=== PATIENT | female | born 1960 | race Caucasian/White ===

== ENCOUNTER 2016-08-01 13:46 | Emergency (ER) | payer OTHER ==
[~2016-08-01] VITALS: Wt 109.0 kg
[~2016-08-01 13:46] MED LIST: AMLO-218 PO; ASPI-664 PO; ATEN50TA PO; BENA40TA41 PO; CLON-379 PO; CLOP75TA27 PO; CYAN50TA PO; FOLI-49 PO; GLIM2TAB PO; HYD25 PO; INSU100V23 SC; LANT3I SC; MELO-109 PO; PANT40TA3 PO; PRAV80TA27 PO; RANO500T2 PO; SERT25TA83 PO
[2016-08-01] MEDS ORDERED: CEPH-443 PO (15:57)
[2016-08-01] MEDS ORDERED: BACTDS PO (15:57)
--- NOTE | 2016-08-01 16:30 | ERD ---
ER Documentation Chief Complaint Date/Time DATE: 08/01/16 TIME: 16:17 Chief Complaint bilateral feet pain from possible ingrown nails. no fevers HPI This is a 55-year-old female with history of DMII, asthma, HTN, [place] on blood thinners presenting to the emergency department complaining of 2nd toe pain bilaterally on and off for four years, she describes the pain 12/13. She states she is able to walk. Denies fevers, drainage ROS All systems reviewed and are negative except as per history of present illness. Medications Home Meds Active Scripts Sulfamethoxazole-Trimethoprim* (Bactrim* DS) 800-160 Mg Tab, 1 TAB PO BID for 5 Days, TAB Prov:LAVONNE SCHERER PA-C 08/01/16 Cephalexin* (Keflex*) 500 Mg Capsule, 500 MG PO QID for 7 Days, CAP Prov:LAVONNE SCHERER PA-C 08/01/16 Amlodipine Besylate* (Norvasc*) 10 Mg Tablet, 10 MG PO DAILY, #60 TAB Prov:MOLLY LOOMIS 01/09/15 Reported Medications Ranolazine* (Ranexa*) 500 Mg Tab.sr.12h, 500 MG PO Q12, TAB 01/08/15 Glimepiride* (Glimepiride*) 2 Mg Tablet, 2 MG PO BID, TAB 01/08/15 Clopidogrel Bisulfate (Clopidogrel) 75 Mg Tablet, 75 MG PO DAILY, TAB 01/08/15 Benazepril Hcl* (Benazepril Hcl*) 40 Mg Tablet, 40 MG PO DAILY, TAB 01/08/15 Folic Acid* (Folic Acid*) 1 Mg Tablet, 1 MG PO DAILY, TAB 01/08/15 Meloxicam* (Meloxicam*) 7.5 Mg Tablet, 7.5 MG PO DAILY, TAB 01/08/15 Aspirin* (Aspirin* (EC)) 81 Mg Tablet.dr, 81 MG PO DAILY, TAB 01/08/15 Atenolol* (Atenolol*) 50 Mg Tablet, 50 MG PO DAILY, TAB 01/08/15 Sertraline Hcl* (Sertraline Hcl*) 25 Mg Tablet, 25 MG PO DAILY, TAB 01/08/15 Pantoprazole* (Protonix*) 40 Mg Tablet.dr, 40 MG PO DAILY, TAB 01/08/15 Pravastatin Sodium* (Pravastatin Sodium*) 80 Mg Tablet, 80 MG PO HS, TAB 01/08/15 Hydrochlorothiazide* (Hydrochlorothiazide*) 25 Mg Tab, 25 MG PO DAILY, TAB 01/08/15 Clonidine Hcl* (Clonidine Hcl*) 0.1 Mg Tab, 0.1 MG PO Q8, TAB 01/08/15 Cyanocobalamin* (Vitamin B-12*) 50 Mcg Tablet, 50 MCG PO DAILY, TAB 01/08/15 Insulin Regular, Human* (Novolin R*) 100 U/Ml Vial, 15 UNIT SC BID, VIAL 01/08/15 Insulin Glargine* (Lantus*) 100 Unit/Ml Soln, 40-50 UNIT SC DAILY, EA 01/08/15 Allergies Allergies: Coded Allergies: No Known Allergy (Unverified , 01/08/15) PMhx/Soc History of Surgery: Yes (STENT PLACEMENT 07/2014) Anesthesia Reaction: No Hx Neurological Disorder: No Hx Respiratory Disorders: No Hx Cardiac Disorders: Yes (STENT , [place] 07/18, HTN) Hx Psychiatric Problems: No Hx Miscellaneous Medical Probl: No (dm ) Hx Alcohol Use: No Hx Substance Use: No Hx Tobacco Use: No Physical Exam Vitals Vital Signs Date Time Temp Pulse Resp B/P Pulse Ox O2 Delivery O2 Flow Rate FiO2 08/01/16 13:59 98.9 69 21 140/91 98 Physical Exam General: WD/WN, in no apparent distress, non-toxic appearing HENT: NC/AT Eyes: Conjunctiva normal Neck: Supple Pulm: Clear to auscultation, normal labored breathing; no wheezing/rales/ rhonchi heard CV: Good capillary refill GI: Non-distended, no guarding Back: No masses Ext: No clubbing, cyanosis, or edema Neuro: Moves on all fours Skin: No evidence of paronychia, redness,or drainage on toenails Normal turgor, color, and temperature. No ulcerations or rashes noted. Psych: Normal mood Procedures/MDM This is a 55-year-old female with history of DMII, asthma, HTN, [place] on blood thinners presenting to the emergency department complaining of 2nd toe pain bilaterally on and off for four years, On examination, it appears that patient has mild ingrown toe nails on the 2nd digits of both feet without any evidence of significant paronychia, abscess, cellulitis, felon. Patient is suitable for warm soaks three times a day and antibiotics keflex and bactrim for possible infection, I have discussed for patient to follow-up with podiatry. Patient is stable and neurovascularly intact for discharge She understands and agrees plan Departure Diagnosis: Primary Impression: IGTN (ingrowing toe nail) Condition: Stable Patient Instructions: Understanding Ingrown Toenails, Ingrown Toenail, No Infect (Hometx), Ingrown Toenail, Infected (Abx Only) [facility] Usted se pena hecho un examen mdico de control que le indica que no est en kirit condicin que requiera tratamiento urgente en el Departamento de Emergencia. Un estudio ms profundo y el tratamiento de ruiz condicin pueden esperar sin ningn riesgo hasta que usted sea atendida/o en el consultorio de ruiz mdico o kirit cl rob. Es responsabilidad suya arreglar kirit marc para el seguimiento del sergei. MANEJO DE CONDICIONES NO URGENTES EN EL FUTURO 1) Si usted tiene un mdico de atencin primaria: Usted debera llamar a ruiz mdico de atencin primaria antes de venir al departamento de emergencia. Despus de las horas de consultorio, ruiz doctor o ruiz asociado/a est disponible por telfono. El mdico o enfermero de suzanne en el servicio telefnico puede asesorarle por mercedez medio para atender el problema, o sergei contrario se puede programar kirit marc. 2) Si usted no tiene un mdico de atencin primaria: Llame al mdico o clnica de referencia que aparece abajo onofre las horas de consultorio para hacer kirit marc para que le vean. CLINICAS: [facility] [id number] [facility] [phone] [facility] [phone] [facility] [phone] [facility] [phone] [address] [facility] [phone] [address] Additional Instructions: FOLLOW UP WITH YOUR PRIMARY CARE PHYSICIAN TOMORROW.Return to this facility if you are not improving as expected. Take all medicines as directed. Return to this facility if you are not improving as expected. LAVONNE SCHERER PA-C Aug 01, 2016 16:27
== END 2016-08-01 16:26 | disposition home or self-care (01) ==
LOC: FTE 13:46
DX: L60.0 Ingrowing nail (principal); I10 Essential (primary) hypertension; E11.9 Type 2 diabetes mellitus without complications; J45.909 Unspecified asthma, uncomplicated; Z79.4 Long term (current) use of insulin; Z79.82 Long term (current) use of aspirin; Z79.84 Long term (current) use of oral hypoglycemic drugs; Z98.61 Coronary angioplasty status
CPT/HCPCS: 99284

== ENCOUNTER 2016-08-13 14:50 | Emergency (ER) | payer OTHER ==
[~2016-08-13] VITALS: Ht 165.1 cm; Wt 111.0 kg
[~2016-08-13 14:50] MED LIST changes: +BACTDS PO; +CEPH-443 PO
[2016-08-13 15:17] VITALS: Ht 165.1 cm; Wt 111.0 kg
[2016-08-13] MEDS ORDERED: LIDOCAINE 1% (MDV) 20 ML INJ SC ONE (17:00)
[2016-08-13] MEDS ORDERED: HYDROCODONE/APAP (5/325) TAB PO ONE (18:30)
[2016-08-13] MEDS ORDERED: HYDR-905 PO (18:37)
[2016-08-13] MEDS ORDERED: BACTDS PO (18:37)
[2016-08-13] MEDS ORDERED: CEPH-443 PO (18:37)
[2016-08-13 18:51] VITALS: BP 156/82; PULSE 88; RESP 17; TEMP 98.6
--- NOTE | 2016-08-13 20:43 | ERA ---
ER Documentation Chief Complaint Date/Time DATE: 08/13/16 TIME: 20:36 Chief Complaint BILATERAL TOE PAIN FROM INGROWN NAIL, HERE TO HAVE INGROWN NAIL REMOVED HPI Patient is a 55-year-old female who returns to the emergency department for bilateral toe pain of her second digit. Patient has a 7 year history of ingrown toenails of the same toes that have never been treated. Patient states the pain to be 10 out of 10 when the toenails moved. Worsening of pain happens with toenail movement and nothing has improved the symptoms. Was recently seen in the ER and prescribed Bactrim and Keflex. ROS All systems reviewed and are negative except as per history of present illness. Medications Home Meds Active Scripts Sulfamethoxazole-Trimethoprim* (Bactrim* DS) 800-160 Mg Tab, 1 TAB PO DAILY for 5 Days, TAB Prov:MARYBETH BARNHART PA-C 08/13/16 Cephalexin* (Keflex*) 500 Mg Capsule, 500 MG PO QID for 5 Days, CAP Prov:MARYBETH BARNHART PA-C 08/13/16 Hydrocodone/Acetaminophen (Roscoe 7.5-325 Tablet) 1 Each Tablet, 1 EACH PO QID for 5 Days, TAB Prov:MARYBETH BARNHART PA-C 08/13/16 Sulfamethoxazole-Trimethoprim* (Bactrim* DS) 800-160 Mg Tab, 1 TAB PO BID for 5 Days, TAB Prov:LAVONNE SCHERER PA-C 08/01/16 Cephalexin* (Keflex*) 500 Mg Capsule, 500 MG PO QID for 7 Days, CAP Prov:LAVONNE SCHERER PA-C 08/01/16 Amlodipine Besylate* (Norvasc*) 10 Mg Tablet, 10 MG PO DAILY, #60 TAB Prov:MOLLY LOOMIS 01/09/15 Reported Medications Ranolazine* (Ranexa*) 500 Mg Tab.sr.12h, 500 MG PO Q12, TAB 01/08/15 Glimepiride* (Glimepiride*) 2 Mg Tablet, 2 MG PO BID, TAB 01/08/15 Clopidogrel Bisulfate (Clopidogrel) 75 Mg Tablet, 75 MG PO DAILY, TAB 01/08/15 Benazepril Hcl* (Benazepril Hcl*) 40 Mg Tablet, 40 MG PO DAILY, TAB 01/08/15 Folic Acid* (Folic Acid*) 1 Mg Tablet, 1 MG PO DAILY, TAB 01/08/15 Meloxicam* (Meloxicam*) 7.5 Mg Tablet, 7.5 MG PO DAILY, TAB 01/08/15 Aspirin* (Aspirin* (EC)) 81 Mg Tablet.dr, 81 MG PO DAILY, TAB 01/08/15 Atenolol* (Atenolol*) 50 Mg Tablet, 50 MG PO DAILY, TAB 01/08/15 Sertraline Hcl* (Sertraline Hcl*) 25 Mg Tablet, 25 MG PO DAILY, TAB 01/08/15 Pantoprazole* (Protonix*) 40 Mg Tablet.dr, 40 MG PO DAILY, TAB 01/08/15 Pravastatin Sodium* (Pravastatin Sodium*) 80 Mg Tablet, 80 MG PO HS, TAB 01/08/15 Hydrochlorothiazide* (Hydrochlorothiazide*) 25 Mg Tab, 25 MG PO DAILY, TAB 01/08/15 Clonidine Hcl* (Clonidine Hcl*) 0.1 Mg Tab, 0.1 MG PO Q8, TAB 01/08/15 Cyanocobalamin* (Vitamin B-12*) 50 Mcg Tablet, 50 MCG PO DAILY, TAB 01/08/15 Insulin Regular, Human* (Novolin R*) 100 U/Ml Vial, 15 UNIT SC BID, VIAL 01/08/15 Insulin Glargine* (Lantus*) 100 Unit/Ml Soln, 40-50 UNIT SC DAILY, EA 01/08/15 Allergies Allergies: Coded Allergies: No Known Allergy (Unverified , 01/08/15) PMhx/Soc History of Surgery: Yes (STENT PLACEMENT 07/2014) Anesthesia Reaction: No Hx Neurological Disorder: No Hx Respiratory Disorders: No Hx Cardiac Disorders: Yes (STENT , [place] 07/18, HTN) Hx Psychiatric Problems: No Hx Miscellaneous Medical Probl: No (dm ) Hx Alcohol Use: No Hx Substance Use: No Hx Tobacco Use: No Physical Exam Vitals Vital Signs Date Time Temp Pulse Resp B/P Pulse Ox O2 Delivery O2 Flow Rate FiO2 08/13/16 18:51 98.6 88 17 156/82 96 Room Air 08/13/16 15:17 98.7 91 18 189/89 95 Physical Exam Const: 55-year-old obese female. Head: Atraumatic Eyes: Normal Conjunctiva ENT: Normal External Ears, Nose and Mouth. Neck: Full range of motion..~ No meningismus. Resp: Clear to auscultation bilaterally Cardio: Regular rate and rhythm, no murmurs Abd: Soft, non tender, non distended. Normal bowel sounds Skin: No petechiae or rashes Back: No midline or flank tenderness Ext: No cyanosis. Second digit on each foot has a toenail that is surrounded into the skin on both the lateral and medial sides. Neur: Awake and alert Psych: Normal Mood and Affect Results 24 hrs Current Medications Medications (Trade) Dose Ordered Sig/Lenka Route PRN Reason Start Time Stop Time Status Last Admin Dose Admin Lidocaine (Xylocaine 1% (Mdv) 20 ml) 20 ml ONCE ONCE SC 08/13/16 17:00 08/13/16 17:01 DC Acetaminophen/ Hydrocodone Bitart (Roscoe (5/325)) 1 tab ONCE ONCE PO 08/13/16 18:30 08/13/16 18:31 DC 08/13/16 18:09 Procedures/MDM Patient has a chronic 7 year history of ingrown toenails which have not been treated. Was at the emergency department and prescribed Bactrim and Keflex with elevation of symptoms. On physical examination of seen severe ingrown toenails on both second digits of the feet bilaterally. Talk to Dr. Woodard and he agrees with my assessment and plan. Plan at this time is to remove the entire toenail from each of the second digits of the feet bilaterally. Will discharge with pain medication with Roscoe and antibiotics. The first toenail taken off of the left the nail and the nailbed was removed there were no complications. Patient's capillary refill was within normal limits before and after procedure. The second now taken was from the right second digit and again both the nail and nailbed were completely removed. There were no complications. Patient's capillary refill was intact before and after. Departure Diagnosis: Primary Impression: Nail problem Additional Impression: Nail bed injury Condition: Stable Patient Instructions: Understanding Ingrown Toenails, Ingrown Toenail, Excised Additional Instructions: Return to emergency department in 2 days for reevaluation of wound. Return sooner if infections or symptoms worsen. May alternate the Roscoe with ibuprofen 4 hours per MARYBETH BARNHART PA-C Aug 13, 2016 20:43
== END 2016-08-13 18:53 | disposition home or self-care (01) ==
LOC: FTE 14:50
DX: S99.921A Unspecified injury of right foot, initial encounter (principal); S99.922A Unspecified injury of left foot, initial encounter; L60.0 Ingrowing nail; I10 Essential (primary) hypertension; E11.9 Type 2 diabetes mellitus without complications; X58.XXXA Exposure to other specified factors, initial encounter; Y92.9 Unspecified place or not applicable; Z79.4 Long term (current) use of insulin; Z79.84 Long term (current) use of oral hypoglycemic drugs; Z79.82 Long term (current) use of aspirin; Z79.01 Long term (current) use of anticoagulants; Z98.61 Coronary angioplasty status
CPT/HCPCS: 11750; Z7502; Z7610

== ENCOUNTER 2016-08-15 13:50 | Emergency (ER) | payer OTHER ==
[~2016-08-15] VITALS: Wt 113.6 kg
[~2016-08-15 13:50] MED LIST changes: +HYDR-905 PO
--- NOTE | 2016-08-15 14:29 | ERD ---
ER Documentation Chief Complaint Date/Time DATE: 08/15/16 TIME: 14:25 Chief Complaint wound recheck HPI Patient is a 55-year-old female who presents to the ED with wound check of her bilateral toe nail removal. She states that it was removed on 08/13/16. Denies fevers or chills. She is taking her medication as prescribed. She has not filled her Roland for pain. She states that she does have mild pain. No other complaints. Denies headache or dizziness. ROS All systems reviewed and are negative except as per history of present illness. Medications Home Meds Active Scripts Sulfamethoxazole-Trimethoprim* (Bactrim* DS) 800-160 Mg Tab, 1 TAB PO DAILY for 5 Days, TAB Prov:MARYBETH BARNHART PA-C 08/13/16 Cephalexin* (Keflex*) 500 Mg Capsule, 500 MG PO QID for 5 Days, CAP Prov:MARYBETH BARNHART PA-C 08/13/16 Hydrocodone/Acetaminophen (Roland 7.5-325 Tablet) 1 Each Tablet, 1 EACH PO QID for 5 Days, TAB Prov:MARYBETH BARNHART PA-C 08/13/16 Sulfamethoxazole-Trimethoprim* (Bactrim* DS) 800-160 Mg Tab, 1 TAB PO BID for 5 Days, TAB Prov:LAVONNE SCHERER PA-C 08/01/16 Cephalexin* (Keflex*) 500 Mg Capsule, 500 MG PO QID for 7 Days, CAP Prov:LAVONNE SCHERER PA-C 08/01/16 Amlodipine Besylate* (Norvasc*) 10 Mg Tablet, 10 MG PO DAILY, #60 TAB Prov:MOLLY LOOMIS 01/09/15 Reported Medications Ranolazine* (Ranexa*) 500 Mg Tab.sr.12h, 500 MG PO Q12, TAB 01/08/15 Glimepiride* (Glimepiride*) 2 Mg Tablet, 2 MG PO BID, TAB 01/08/15 Clopidogrel Bisulfate (Clopidogrel) 75 Mg Tablet, 75 MG PO DAILY, TAB 01/08/15 Benazepril Hcl* (Benazepril Hcl*) 40 Mg Tablet, 40 MG PO DAILY, TAB 01/08/15 Folic Acid* (Folic Acid*) 1 Mg Tablet, 1 MG PO DAILY, TAB 01/08/15 Meloxicam* (Meloxicam*) 7.5 Mg Tablet, 7.5 MG PO DAILY, TAB 01/08/15 Aspirin* (Aspirin* (EC)) 81 Mg Tablet.dr, 81 MG PO DAILY, TAB 01/08/15 Atenolol* (Atenolol*) 50 Mg Tablet, 50 MG PO DAILY, TAB 01/08/15 Sertraline Hcl* (Sertraline Hcl*) 25 Mg Tablet, 25 MG PO DAILY, TAB 01/08/15 Pantoprazole* (Protonix*) 40 Mg Tablet.dr, 40 MG PO DAILY, TAB 01/08/15 Pravastatin Sodium* (Pravastatin Sodium*) 80 Mg Tablet, 80 MG PO HS, TAB 01/08/15 Hydrochlorothiazide* (Hydrochlorothiazide*) 25 Mg Tab, 25 MG PO DAILY, TAB 01/08/15 Clonidine Hcl* (Clonidine Hcl*) 0.1 Mg Tab, 0.1 MG PO Q8, TAB 01/08/15 Cyanocobalamin* (Vitamin B-12*) 50 Mcg Tablet, 50 MCG PO DAILY, TAB 01/08/15 Insulin Regular, Human* (Novolin R*) 100 U/Ml Vial, 15 UNIT SC BID, VIAL 01/08/15 Insulin Glargine* (Lantus*) 100 Unit/Ml Soln, 40-50 UNIT SC DAILY, EA 01/08/15 Allergies Allergies: Coded Allergies: No Known Allergy (Unverified , 01/08/15) PMhx/Soc History of Surgery: Yes (STENT PLACEMENT 07/2014) Anesthesia Reaction: No Hx Neurological Disorder: No Hx Respiratory Disorders: No Hx Cardiac Disorders: Yes (STENT , [place] 07/18, HTN) Hx Psychiatric Problems: No Hx Miscellaneous Medical Probl: No (dm ) Hx Alcohol Use: No Hx Substance Use: No Hx Tobacco Use: No FmHx Family History: No coronary disease, No diabetes, No other Physical Exam Vitals Vital Signs Date Time Temp Pulse Resp B/P Pulse Ox O2 Delivery O2 Flow Rate FiO2 08/15/16 13:51 98.7 98 20 139/87 98 Physical Exam GENERAL: Well-developed, well-nourished female. Appears in no acute distress. LUNG: Clear to auscultation bilaterally. No rhonchi, wheezing, rales or coarse breath sounds. HEART: Regular rate and rhythm. No murmurs, rubs or gallops. Extremities: Equal pulses bilaterally. No peripheral clubbing, cyanosis or edema. No unilateral leg swelling. bilateral toenails removed. no signs of further infection. no drainage or bleeding. NEUROLOGIC: Alert and oriented. Moving all four extremities. 5/5 strength in all extremities. Normal speech. Steady gait. SKIN: Normal color. Warm and dry. No rashes or lesions. Capillary refill < 2 seconds Results 24 hrs Current Medications Medications (Trade) Dose Ordered Sig/Lenka Route PRN Reason Start Time Stop Time Status Last Admin Dose Admin Acetaminophen/ Hydrocodone Bitart (Roland (5/325)) 1 tab ONCE ONCE PO 08/15/16 14:30 08/15/16 14:31 Procedures/MDM ER COURSE: I kept the patient and/or family informed of laboratory and diagnostic imaging results throughout the emergency room course. ER COURSE: I kept the patient and/or family informed of laboratory and diagnostic imaging results throughout the emergency room course. MEDICAL DECISION MAKING: This is a 55 year old female who presents with wound check of her bilateral toenails. Vital signs were reviewed. Patient is afebrile. Patient is not hypoxic. Wound shows no evidence of infection, foreign body, neurologic injury , vascular injury, open joint or tendon laceration. Patient appropriate for outpatient follow up. Capillary refill less than 2 seconds post dressing. Neurovascularly intact. DISCHARGE: At this time, patient is stable for discharge and outpatient management with no new complaints during the ER course. Patient will be discharged home with instructions to recheck for new or worsening symptoms such as fever, nausea, weakness, LOC and to follow up with primary care in the next 1-2 days. Patient was advised to return to the ER for any new or worsening symptoms. Plan was discussed and patient and/or family understands and agrees. Home instructions were given. Departure Diagnosis: Primary Impression: Encounter for wound re-check Condition: Stable CADY GAO PA-C Aug 15, 2016 14:29
[2016-08-15] MEDS ORDERED: HYDROCODONE/APAP (5/325) TAB PO ONE (14:30)
== END 2016-08-15 14:57 | disposition home or self-care (01) ==
LOC: FTE 13:50
DX: Z48.01 Encounter for change or removal of surgical wound dressing (principal); I10 Essential (primary) hypertension; E11.9 Type 2 diabetes mellitus without complications; M79.675 Pain in left toe(s); M79.674 Pain in right toe(s); Z79.4 Long term (current) use of insulin; Z79.84 Long term (current) use of oral hypoglycemic drugs; Z79.82 Long term (current) use of aspirin
CPT/HCPCS: Z7502; Z7610; 99283

== ENCOUNTER 2016-08-18 12:51 | Emergency (ER) | payer OTHER ==
[~2016-08-18] VITALS: Ht 152.4 cm; Wt 111.0 kg
[2016-08-18 12:59] VITALS: Ht 152.4 cm; Wt 111.0 kg
[2016-08-18] MEDS ORDERED: BEN25 PO (15:21)
--- NOTE | 2016-08-18 15:37 | ERD ---
ER Documentation Chief Complaint Date/Time DATE: 08/18/16 TIME: 15:24 Chief Complaint wound check to the right and left toe; procedure done 3 days ago HPI Patient is a 55-year-old female who presents to the emergency department for wound check of her bilateral toenail removal. Patient had toenails removed on . Patient denies any fevers or chills. Patient is she has been taking the antibiotics as prescribed however this morning she developed body itching and facial redness. Patient denies any difficulty speaking. Patient denies any tongue swelling, lip swelling, throat swelling. Patient denies any chest pain, shortness of breath. States she does have mild pain however she is able to tolerate with taking pain medication. ROS All systems reviewed and are negative except as per history of present illness. Medications Home Meds Active Scripts Diphenhydramine Hcl* (Benadryl*) 25 Mg Cap, 25 MG PO Q6, #30 CAP Prov:GRAY WEST PA-C 08/18/16 Sulfamethoxazole-Trimethoprim* (Bactrim* DS) 800-160 Mg Tab, 1 TAB PO DAILY for 5 Days, TAB Prov:MARYBETH BARNHART PA-C 08/13/16 Cephalexin* (Keflex*) 500 Mg Capsule, 500 MG PO QID for 5 Days, CAP Prov:MARYBETH BARNHART PA-C 08/13/16 Hydrocodone/Acetaminophen (Metaline 7.5-325 Tablet) 1 Each Tablet, 1 EACH PO QID for 5 Days, TAB Prov:MARYBETH BARNHART PA-C 08/13/16 Sulfamethoxazole-Trimethoprim* (Bactrim* DS) 800-160 Mg Tab, 1 TAB PO BID for 5 Days, TAB Prov:LAVONNE SCHERER PA-C 08/01/16 Cephalexin* (Keflex*) 500 Mg Capsule, 500 MG PO QID for 7 Days, CAP Prov:LAVONNE SCHERER PA-C 08/01/16 Amlodipine Besylate* (Norvasc*) 10 Mg Tablet, 10 MG PO DAILY, #60 TAB Prov:MOLLY LOOMIS 01/09/15 Reported Medications Ranolazine* (Ranexa*) 500 Mg Tab.sr.12h, 500 MG PO Q12, TAB 01/08/15 Glimepiride* (Glimepiride*) 2 Mg Tablet, 2 MG PO BID, TAB 01/08/15 Clopidogrel Bisulfate (Clopidogrel) 75 Mg Tablet, 75 MG PO DAILY, TAB 01/08/15 Benazepril Hcl* (Benazepril Hcl*) 40 Mg Tablet, 40 MG PO DAILY, TAB 01/08/15 Folic Acid* (Folic Acid*) 1 Mg Tablet, 1 MG PO DAILY, TAB 01/08/15 Meloxicam* (Meloxicam*) 7.5 Mg Tablet, 7.5 MG PO DAILY, TAB 01/08/15 Aspirin* (Aspirin* (EC)) 81 Mg Tablet.dr, 81 MG PO DAILY, TAB 01/08/15 Atenolol* (Atenolol*) 50 Mg Tablet, 50 MG PO DAILY, TAB 01/08/15 Sertraline Hcl* (Sertraline Hcl*) 25 Mg Tablet, 25 MG PO DAILY, TAB 01/08/15 Pantoprazole* (Protonix*) 40 Mg Tablet.dr, 40 MG PO DAILY, TAB 01/08/15 Pravastatin Sodium* (Pravastatin Sodium*) 80 Mg Tablet, 80 MG PO HS, TAB 01/08/15 Hydrochlorothiazide* (Hydrochlorothiazide*) 25 Mg Tab, 25 MG PO DAILY, TAB 01/08/15 Clonidine Hcl* (Clonidine Hcl*) 0.1 Mg Tab, 0.1 MG PO Q8, TAB 01/08/15 Cyanocobalamin* (Vitamin B-12*) 50 Mcg Tablet, 50 MCG PO DAILY, TAB 01/08/15 Insulin Regular, Human* (Novolin R*) 100 U/Ml Vial, 15 UNIT SC BID, VIAL 01/08/15 Insulin Glargine* (Lantus*) 100 Unit/Ml Soln, 40-50 UNIT SC DAILY, EA 01/08/15 Allergies Allergies: Coded Allergies: No Known Allergy (Unverified , 08/18/16) PMhx/Soc History of Surgery: Yes (STENT PLACEMENT 07/2014) Anesthesia Reaction: No Hx Neurological Disorder: No Hx Respiratory Disorders: No Hx Cardiac Disorders: Yes (STENT , [place] 07/18, HTN) Hx Psychiatric Problems: No Hx Miscellaneous Medical Probl: No (dm ) Hx Alcohol Use: No Hx Substance Use: No Hx Tobacco Use: No Smoking Status: Never smoker Physical Exam Vitals Vital Signs Date Time Temp Pulse Resp B/P Pulse Ox O2 Delivery O2 Flow Rate FiO2 08/18/16 12:59 98.0 75 18 135/63 97 Physical Exam GENERAL: Well-developed, well-nourished female. Appears in no acute distress. Speaking in full sentences. HEAD: Normocephalic, atraumatic. No deformities or ecchymosis. FACE: Erythema and swelling surrounding the perioral region. EYE: Pupils equal, round, and reactive to light. EOMs intact. No conjunctival erythema. No eye discharge. ENT: External ear without any masses or tenderness. Nasal mucosa pink with no discharge. Oropharynx is pink without any tonsillar erythema or exudates. No uvula deviation. No kissing tonsils. No lip swelling. No tongue swelling. No throat swelling. NECK: Supple. No meningismus. Normal ROM of the neck. LUNG: Clear to auscultation bilaterally. No rhonchi, wheezing, rales or coarse breath sounds. HEART: Regular rate and rhythm. No murmurs, rubs or gallops. EXTREMITIES: Equal pulses bilaterally. No peripheral clubbing, cyanosis or edema. No unilateral leg swelling. NEUROLOGIC: Alert and oriented to person, place and time. Moving all four extremities. 5/5 strength in all extremities. Normal speech. Steady gait. SKIN: Normal color. Warm and dry. Bilateral second digit toenails removed, healing appropriately. No warmth, no swelling, no redness. No drainage or active bleeding. Normal 2+ pulses. Procedures/MDM MEDICAL DECISION MAKING: This is a 55-year-old female who presents for wound recheck of her bilateral toenails status post toenail removal. Patient did report taking antibiotics as prescribed. She stated this morning she woke up with some facial swelling, redness and itching. Vital signs were reviewed. Patient was afebrile. Patient' s wounds were cleansed with normal saline and redressed appropriately. At this time, patient's presentation is most consistent with healing wounds. Low suspicion for infection, cellulitis, abscess, vascular injury, tendon injury. Low suspicion for anaphylaxis. Paitent advised to discontinue antibiotics given that it appears that patient is having an allergic reaction to the medication. At this time, there is no signs of infection requiring antibiotic use. PRESCRIPTIONS: Benadryl DISCHARGE: At this time, the patient is stable for discharge and outpatient management. Post-procedural wound care was discussed with the patient. I have instructed the patient to promptly return to the ER for any new or worsening symptoms including increasing pain, fever, warmth, redness or swelling. The patient and/ or family expressed understanding of and agreement with this plan. All questions were answered. Home care instructions were provided. Departure Diagnosis: Primary Impression: Encounter for wound re-check Patient Instructions: Wound Care Referrals: MATTHEW LANGSTON (PCP) Additional Instructions: Stop antibiotics. Call your primary care doctor TOMORROW for an appointment during the next 1-2 days.See the doctor sooner or return here if your condition worsens before your appointment time. GRAY WEST PA-C Aug 18, 2016 15:34 GRAY WEST PA-C Aug 18, 2016 15:34
== END 2016-08-18 15:48 | disposition home or self-care (01) ==
LOC: FTE 12:51
DX: Z48.01 Encounter for change or removal of surgical wound dressing (principal); I10 Essential (primary) hypertension; E11.9 Type 2 diabetes mellitus without complications; Z79.82 Long term (current) use of aspirin; Z79.4 Long term (current) use of insulin; Z79.01 Long term (current) use of anticoagulants; Z79.84 Long term (current) use of oral hypoglycemic drugs; Z98.61 Coronary angioplasty status
CPT/HCPCS: 99283